=== PATIENT | male | born 1970 | race Hispanic/Latino ===

== ENCOUNTER 2022-01-10 12:31 | Emergency (ER) | payer SELFPAY ==
[2022-01-10] MEDS ORDERED: SODIUM CHLORIDE 0.9% 1000 ML 1,000 ML IV ONE (12:39)
--- NOTE | 2022-01-10 12:46 | Emergency Department Report ---
HPI - General Chief Complaint: Overdose PUI?: No Time Seen by Provider: 01/10/22 12:38 - HPI HPI: 51yo M bibems for opioid overdose. EMS reports pt was minimally responsive, had pinpoint pupils, and subsequently received narcan 4mg IVP from them via a L EJV peripheral catheter that was placed. The pt's mentation is normal. The pt states "I took a tablet of radha from my friend." He denies ongoing chronic drug abuse. He denies any other symptoms. Pain 0/10. ED Past Medical Hx - Surgical History Hx Appendectomy: Yes - Social History Smoking Status: Current Every Day Smoker Substance Use Type: None ED Review of Systems ROS: Stated complaint: OVERDOSE Other details as noted in HPI Comment: All other systems reviewed and negative Physical Exam - Physical Exam Vital Signs: Vital Signs 01/10/22 12:35 Temperature 98.2 F Pulse Rate 90 Respiratory 14 Rate Blood Pressure 135/86 [Left] O2 Sat by Pulse 97 Oximetry General: Gen: pt is well appearing, no acute distress; sitting up in stretcher, speaking in full sentences, no drooling no stridor no respiratory distress, breathing unlabored, nontoxic-appearing, patient is disheveled, hands are darkened and covered in what appears to be dirt, patient is unkempt HEENT: Normocephalic atraumatic pupils pinpoint bilaterally, extraocular muscles intact sclera anicteric Neck: Full range of motion, no midline spinal tenderness palpation, no JVD, no carotid bruits, no nuchal rigidity CVS: S1-S2 regular rhythm; tachycardia ith no gallops rubs or murmurs, chest wall nontender Pulmonary: Clear to auscultation bilaterally, no wheezes rales or rhonchi Abdomen: Soft nondistended nontender no guarding or rebound tenderness, no palpable deformities or step-offs, normal active bowel sounds, no hepatosplenomegaly, no pulsatile masses Back: Full range of motion, no midline spinal tenderness palpation, no palpable deformities or step-offs : Deferred Extremities: No cyanosis no clubbing no edema, intact distal peripheral pulses, Integumentary: Skin normal, no petechia no purpura no abscess no lacerations no evidence of trauma no evidence of infection Neuro: Patient is awake alert and oriented to person place time situation, mentating well, cranial nerves II through XII intact, no focal neurodeficits, sensation grossly tact Psych: Calm cooperative, mood affect normal ED Course Vital Signs 01/10/22 12:35 Temperature 98.2 F Pulse Rate 90 Respiratory 14 Rate Blood Pressure 135/86 [Left] O2 Sat by Pulse 97 Oximetry - Reevaluation(s) Reevaluation #1: 01/10/22 15:56 Patient reassessed. He remains comfortable and well-appearing. He is not somnolent. He remains patent and intact. His vitals are stable. Tachycardia has resolved. Urinalysis sample remains pending. Remained stable plan will be to discharge to home. Reevaluation #2: 01/10/22 17:05 Patient is awake alert and oriented to person place and time and situation. He is mentating well. He is not somnolent. His vitals are stable and he is protecting his airway. Tachycardia has resolved and he overall appears significantly well. Patient repeatedly denies any headache chest pain shortness of breath difficulty breathing or pains in any other part of his body. He also denies any weakness tingling or numbness or any other worrisome symptoms. The patient's is in examination room. Patient will be discharged to home in her care. ED Medical Decision Making - Lab Data Result diagrams: 01/10/22 13:08 01/10/22 13:08 - EKG Data -: EKG Interpreted by Me EKG shows normal: sinus rhythm Rate: normal - EKG Data When compared to previous EKG there are: previous EKG unavailable Interpretation: no acute changes - Medical Decision Making 51-year-old male brought in by EMS for presumptive opioid overdose with subsequent response to Narcan per their report. Vital stable here. Patient mildly tachycardic but this resolved after intravenous fluids. Patient arrived here well-appearing with denial of any complaints. He was observed for several hours and he had no change in his mental status and no manifestation of active or impending airway, cardiac, or neurovascular compromise. Labs reviewed. [place] drug screen positive for amphetamines as well as marijuana. Remainder of labs grossly unremarkable. Patient's has been present. Patient is discharged home in stable condition in her care. Critical care attestation.: If time is entered above; I have spent that time in minutes in the direct care of this critically ill patient, excluding procedure time. ED Disposition Clinical Impression: Amphetamine abuse Disposition: HOME / SELF CARE / HOMELESS Is pt being admited?: No Does the pt Need Aspirin: No Condition: Stable Instructions: Opioid Overdose Additional Instructions: Is strongly advised that you discontinue using amphetamines and any other drugs that may be [place] and any other opiates. These places you at significant risk for losing her ability to breathe through your self and for you to go into either respiratory and/or cardiac arrest. Follow-up with your primary care doctor within 1-2 business days for reassessment. Observe your symptoms very carefully. Return to the nearest emergency department as soon as possible if you develop severe headaches, vomiting, inability to tolerate liquids or solids, dizziness, severe persistent chest pain, or if any other new worrisome symptoms develop. Referrals: TIMMY NUÑEZ MD [Primary Care Provider] - 3-5 Days
[2022-01-10 13:25] LABS: Basophils # (Auto) 0.1 K/mm3 (0.0-0.1); Basophils % (Auto) 1.1 % (0.0-1.8); Eosinophils # (Auto) 0.1 K/mm3 (0.0-0.4); Eosinophils % (Auto) 2.7 % (0.0-4.3); Hematocrit 44.3 % (35.5-45.6); Hemoglobin 15.1 gm/dl (11.8-15.2); Lymphocytes # (Auto) 1.6 K/mm3 (1.2-5.4); Lymphocytes % (Auto) 29.4 % (13.4-35.0); Mean Corpuscular HGB Conc 34 % (32-34); Mean Corpuscular Volume 94 fl (84-94); Monocytes # (Auto) 0.4 K/mm3 (0.0-0.8); Monocytes % (Auto) 7.5 % (0.0-7.3); Platelet Count 270 K/mm3 (140-440); Red Blood Count 4.71 M/mm3 (3.65-5.03); Red Cell Distribution Width 12.9 % (13.2-15.2)
[2022-01-10 13:45] LABS: Blood Urea Nitrogen 11 mg/dL (9-20); Calcium 8.7 mg/dL (8.4-10.2); Hemolysis Index 9
[2022-01-10 14:02] LABS: BUN/Creatinine Ratio 16
[2022-01-10 15:21] VITALS: BP 128/87
[2022-01-10 16:22] LABS: Benzodiazepines Screen,Urine Negative; Cocaine Screen,Urine Negative; Methadone Screen,Urine Negative; Opiate Screen,Urine Negative
[2022-01-10 17:25] LABS: Amphetamine Screen,Urine Positive; Cannabinoid Screen,Urine Positive
--- NOTE | 2022-01-12 10:14 | Electrocardiograph Report ---
[facility] Test Date: 2022-01-10 Test Time: 12:31:08 Pat Name: BROOK WADE Department: Room: Gender: M Cell Maker: KARSON : 1970 Requested By: CHRISTIN CORONEL Order Number: [id number] Reading MD: Liz Stanley Measurements Intervals [place] Rate: 93 P: 41 [place]: 154 QRS: -46 QRSD: 114 T: 67 QT: 392 QTc: 487 Interpretive Statements Sinus rhythm LAD, consider left anterior fascicular block No previous ECG available for comparison Electronically Signed On 01-12-2022 10:13:47 EDT by Liz Stanley
== END 2022-01-10 17:00 | disposition home or self-care (01) ==
LOC: ED 12:31
DX: F15.10 Other stimulant abuse, uncomplicated (principal); F17.200 Nicotine dependence, unspecified, uncomplicated
CPT/HCPCS: 36415; 80048; 80307; 85025; 93005; 96360; 99284; J7030; 80320; G0480